=== PATIENT | female | born 1975 | race Caucasian/White ===

== ENCOUNTER 2024-04-02 20:08 | Emergency (ER) | payer MEDICAID ==
[~2024-04-02] VITALS: Ht 162.6 cm; Wt 61.2 kg
[2024-04-02 21:40] VITALS: BP 127/78; TEMP 99.2; O2SAT 99
== END 2024-04-02 22:50 | disposition home or self-care (01) ==
LOC: ER 20:40
DX: D17.30 Benign lipomatous neoplasm of skin and subcutaneous tissue of unspecified sites (principal); Z88.8 Allergy status to other drugs, medicaments and biological substances

== ENCOUNTER 2024-07-25 12:11 | Emergency (ER) | payer MEDICAID ==
[~2024-07-25] VITALS: Ht 162.6 cm; Wt 62.1 kg
[2024-07-25 13:58] LABS: BASOPHILS % (AUTO) 0.5 % (0.0-2.0); EOSINOPHILS # (AUTO) 0.1 K/uL (0.0-0.7); EOSINOPHILS % (AUTO) 1.7 % (0.0-6.0); HEMATOCRIT 36 % (33-45); HEMOGLOBIN 12.2 g/dL (11.5-14.8); LYMPHOCYTES % (AUTO) 40.5 % (20.0-44.0); MEAN CORPUSCULAR HEMOGLOBIN 30 PG (26.0-33.0); MEAN CORPUSCULAR HGB CONC 34 g/dl (31.0-36.0); MEAN CORPUSCULAR VOLUME 90 fL (82-100); MONOCYTES # (AUTO) 0.5 K/uL (0.1-1.30); NEUTROPHILS # (AUTO) 3.7 K/uL (1.8-8.9); NEUTROPHILS % (AUTO) 50.3 % (43.0-81.0); PLATELET COUNT (AUTO) 322 K/uL (150-450); RED BLOOD CELL COUNT(AUTO) 4.03 MIL/uL (4.0-5.2); RED CELL DISTRIBUTION WIDTH 13.2 % (11.5-15.0); WHITE BLOOD COUNT (AUTO) 7.4 K/uL (4.3-11.0)
[2024-07-25 14:09] LABS: CALCIUM, SERUM 8.7 mg/dL (8.5-10.1); CARBON DIOXIDE 31 mmol/L (21-32); CHLORIDE 108 mmol/L (98-107); CREATININE 0.8 mg/dL (0.6-1.3); GLUCOSE 81 mg/dL (74-106); POTASSIUM 4.3 mmol/L (3.5-5.1); SODIUM SERUM 142 mmol/L (136-145); UREA NITROGEN, BLOOD 13 mg/dL (7-18)
[2024-07-25 18:41] VITALS: BP 107/68; TEMP 98.3; O2SAT 100
== END 2024-07-25 18:42 | disposition left against medical advice (07) ==
LOC: ER 12:25
DX: R07.89 Other chest pain (principal); R06.02 Shortness of breath; R05.9 Cough, unspecified; R50.9 Fever, unspecified; J02.9 Acute pharyngitis, unspecified
CPT/HCPCS: 36415; 71045-TC; 80048-TC; 84484-TC; 85025-TC